=== PATIENT | female | born 2000 | race African-American/Black ===

== ENCOUNTER 2021-04-21 21:41 | Emergency (ER) | payer SELFPAY ==
[~2021-04-21] VITALS: Ht 157.5 cm; Wt 64.0 kg
[2021-04-21] MEDS ORDERED: METOCLOPRAMIDE HCL 10MG/2ML VIAL IV ONE (22:15)
[2021-04-21] MEDS ORDERED: SUMATRIPTAN SUCCINATE 6MG/0.5ML VIAL SUBCUT ONE (22:15)
[2021-04-21] MEDS ORDERED: SODIUM CHLORIDE 0.9% 1,000 ML IV ONE (22:15)
[2021-04-21] MEDS ORDERED: PROCHLORPERAZINE 10MG/2ML VIAL IV PRN (22:30)
[2021-04-21] MEDS ORDERED: DIPHENHYDRAMINE 50MG/ML VIAL IV ONE (22:30)
[2021-04-22] MEDS ORDERED: NAPR-681 MT (00:39)
[2021-04-22] MEDS ORDERED: ONDA8TAB13 MT (00:39)
[2021-04-22] MEDS ORDERED: IMIT25 MT (00:39)
[2021-04-22 01:25] VITALS: BP 132/68
== END 2021-04-22 01:28 | disposition home or self-care (01) ==
LOC: ER 21:41
DX: R51.9 Headache, unspecified (principal)
CPT/HCPCS: 96361; 96372; 96374; 96375; 99284; J1200; J3030; J7030